=== PATIENT | male | born 1980 | race Caucasian/White ===

== ENCOUNTER 2022-12-29 14:39 | Inpatient (IN) | payer OTHER, SELFPAY ==
[2022-12-29] VITALS (10 sets, daily range): BP systolic 142–200; BP diastolic 90–140; PULSE 97–117; RESP 14–18; TEMP 36.3–36.6; O2SAT 96–99; BMI 31.1
--- NOTE | ~2022-12-29 | CT_ITS ---
EXAMINATION: CT ABDOMEN AND PELVIS WITH CONTRAST CLINICAL INFORMATION: Right upper quadrant and epigastric pain; nausea. COMPARISON: None available. TECHNIQUE: Multidetector volumetric images were obtained from the superior aspect of the liver through the pubic symphysis following administration 85 mL of Omnipaque 350 intravenous contrast. Sagittal and coronal reformatted images were obtained on the technologist's workstation. Oral contrast: No This CT examination was performed using dose optimization techniques as appropriate, variously including the following: *Automated exposure control *Adjustment of mA and/or kV according to patient size (this includes techniques or standardized protocols for targeted exams where dose is matched to indication/reason for exam; i.e. extremities or head) *Use of iterative reconstruction technique DLP: 586 mGy-cm FINDINGS: LUNG BASES: The visualized lung bases are unremarkable. LIVER, GALLBLADDER, AND BILIARY TREE: The liver is normal in size, shape and generally diminished in attenuation. No focal hepatic lesion or biliary ductal dilatation is present. The gallbladder is unremarkable with no evidence of radiopaque gallstones, gallbladder wall thickening, or obvious pericholecystic inflammatory changes. PANCREAS: Unremarkable. SPLEEN: Unremarkable. ADRENAL GLANDS: Unremarkable. KIDNEYS AND URETERS: The kidneys are normal in size, shape, and attenuation. No hydronephrosis, hydroureter, or calculi seen. No perinephric stranding. BLADDER: Unremarkable. GASTROINTESTINAL TRACT: There are a few mildly dilated small bowel loops within the mid and rightward abdomen, with a maximal caliber of approximately 3.5 cm (2:69). There is mild small bowel wall thickening (2:40-69). There is minimal diverticulosis, without acute diverticulitis seen. No free intraperitoneal air is seen. The vermiform appendix appears normal. ABDOMINAL WALL: There is a tiny fat-containing umbilical hernia. LYMPH NODES: Normal. VASCULAR: There is minimal aortoiliac atherosclerotic calcification. No abdominal aortic aneurysm or dissection is seen. PELVIC VISCERA: The prostate and seminal vesicles are unremarkable. OSSEOUS STRUCTURES: Unremarkable. FREE FLUID: There is a small amount of nonspecific free fluid in the dependent pelvis. CT/CT abdomen pelvis w IV con IMPRESSION: 1. There is mild small bowel wall thickening and dilatation, suggesting a mild adynamic ileus and/or gastroenteritis. There is minimal diverticulosis, without obvious diverticulitis. No abscess or obstruction is noted. There is no free intraperitoneal air seen. The vermiform appendix appears normal. 2. There is a small amount of nonspecific free fluid in the dependent pelvis. 3. There is hepatic steatosis. Fleischner guidelines were followed.
--- NOTE | ~2022-12-29 | US_ITS ---
EXAMINATION: US ABDOMEN LIMITED CLINICAL INFORMATION: Right upper quadrant pain tenderness nausea. COMPARISON: CT abdomen from 12/29/2022 TECHNIQUE: Real-time imaging of the right upper quadrant abdominal viscera. FINDINGS: PANCREAS: Normal. LIVER: Increased hepatic echogenicity suggesting hepatic steatosis. The liver is normal in size. The liver contour is normal. Right hepatic lobe complex cystic foci measuring 1.3 x 1.2 x 1.1 cm and 0.8 x 0.8 x 0.8 cm. There is no intrahepatic biliary duct dilatation seen. GALLBLADDER: Normal. The gallbladder is physiologically distended without evidence of stones, sludge, polyps, wall thickening or pericholecystic fluid. Sonographic Chandra sign is negative. COMMON BILE DUCT: Normal in caliber measuring 0.4 cm in diameter. RIGHT KIDNEY: Normal. No hydronephrosis. No renal calculi or focal parenchymal lesions. The kidney measures 11.9 cm in maximum dimension. FREE FLUID: None. US/US abdomen limited IMPRESSION: 1. Increased hepatic echogenicity suggesting hepatic steatosis. 2. Right hepatic lobe complex cystic foci measuring 1.3 x 1.2 x 1.1 cm and 0.8 x 0.8 x 0.8 cm.
--- NOTE | 2022-12-29 15:28 | ECG_ITS ---
Test Reason : CHEST PAIN Blood Pressure : / mmHG Vent. Rate : 105 BPM Atrial Rate : 105 BPM P-R Int : 148 ms QRS Dur : 086 ms QT Int : 320 ms P-R-T Axes : 058 066 019 degrees QTc Int : 422 ms Sinus tachycardia Nonspecific ST abnormality Inferior leads Abnormal ECG No previous ECGs available Referred By: Lauren Meza Electronically Signed By:RAMONE WARREN MD
[2022-12-29 15:42] LABS: Basophils Percent Auto 0.2 % (0-2); Eosinophils Absolute Auto 0.1 X10*3/uL (0.0-0.4); Eosinophils Percent Auto 0.5 % (0-4); Hematocrit 54.3 % (42.0-52.0); Hemoglobin 18.8 g/dl (14.0-18.0); Imm Gran Abs Auto 0.09 X10*3/uL (0.00-0.03); Imm Gran Pct Auto 0.4 % (0.0-0.4); Lymphocytes Absolute Auto 1.8 X10*3/uL (1.2-4.9); Lymphocytes Percent Auto 8.7 % (20-40); MANUAL DIFF FLAG NO; Mean Corpuscular HGB Conc 34.6 g/dl (31.0-36.0); Mean Corpuscular Hemoglobin 30.8 pg (27.0-33.0); Mean Platelet Volume 10.4 fL (9.4-12.4); Monocytes Percent Auto 4.6 % (2-11); Neutrophils Percent Auto 85.6 % (45-73); Platelet Count 296 X10*3/uL (160-400); Red Cell Distribution Width 13.1 % (11.0-16.0); White Blood Count 21.1 X10*3/uL (4.8-10.8)
--- NOTE | 2022-12-29 15:44 | ED.GENADULT ---
HPI - General Adult General Chief complaint: General Medical Stated complaint: legs cramping abd pain weak Time Seen by Provider: 12/29/22 16:27 Source: patient Mode of arrival: ambulatory Limitations: no limitations History of Present Illness HPI narrative: Patient is a 42-year-old male who presents to the emergency department for evaluation of abdominal pain and lower extremity cramping. He reports for the past 3 weeks he has been having sharp upper/mid abdominal pain and nausea without vomiting. This has been occurring intermittently. Typically pain lasts for about 10 minutes at a time before self-resolving. He states that he tried to be seen at [facility] for this but ultimately left due to weight times. He saw his primary care provider last week, reports that he had blood work done without any acute findings. He does state that over the past few weeks he was having issues with hypokalemia, they made adjustments to his medications, he had HCTZ and chlorthalidone discontinued and he was started on spironolactone in addition to potassium supplements. He does state that he had been experiencing cramping in the legs around the times of his prior hypokalemia. But he reports that today the pain in his legs is severe and he was not able to tolerated. He did not take his antihypertensives today either due to feeling unwell. He was experiencing tactile fevers and shaking chills. He denies URI symptoms, cough, chest pain, shortness of breath, dysuria, urinary frequency/urgency/hesitancy, constipation, diarrhea, numbness or tingling of the extremities. Related Data Home Medications Medication Instructions Recorded Confirmed amlodipine 10 mg-benazepril 40 mg 1 cap PO DAILY 12/29/22 12/29/22 capsule aripiprazole 20 mg tablet 20 mg PO BEDTIME PRN Hypertension 12/29/22 12/29/22 atomoxetine 40 mg capsule 40 mg PO DAILY 12/29/22 12/29/22 (Strattera) atomoxetine 80 mg capsule 80 mg PO DAILY 12/29/22 12/29/22 chlorthalidone 25 mg tablet 25 mg PO DAILY 12/29/22 clonidine HCl 0.1 mg tablet 0.1 mg PO BID PRN anxiety 12/29/22 12/29/22 dextroamphetamine-amphetamine ER 1 cap PO QAM 12/29/22 12/29/22 10 mg 24hr capsule,extend release (Adderall XR) divalproex 500 mg tablet,extended 1,000 mg PO BEDTIME 12/29/22 12/29/22 release 24 hr (Depakote ER) famotidine 20 mg tablet 20 mg PO BID 12/29/22 12/29/22 gabapentin 300 mg capsule 300 mg PO BID 12/29/22 12/29/22 melatonin 1 mg tablet 1 mg PO BEDTIME 12/29/22 12/29/22 melatonin 1 mg tablet 1 mg PO BEDTIME 12/29/22 12/29/22 spironolactone 25 mg tablet 25 mg PO DAILY 12/29/22 12/29/22 Allergies Allergy/AdvReac Type Severity Reaction Status Date / Time No Known Allergies Allergy Unverified 11/18/19 15:41 [No Known Allergies*] Review of Systems Review of Systems: Yes all other systems are reviewed and are negative [facility] Past Medical History Attestation statement: The following information was validated with the patient. Source: old records reviewed Medical History Homelessness Pre-diabetes Obstructive sleep apnea ADD (attention deficit disorder) Cannabis use disorder Bipolar disorder Hyperlipidemia Hypertension Social History Social History Smoked in Last 30 Days: No Use of substances other than those prescribed or required for medical reasons: No Advance Directives: No Physical Exam ED Vital Signs: Vital Signs - 24 hr 12/29/22 15:18 12/29/22 16:52 12/29/22 17:38 Temperature 97.4 F 97.7 F Pulse Rate 110 H 102 H 97 Respiratory Rate 18 14 14 Blood Pressure 189/135 H 197/140 H 184/112 H Pulse Oximetry 97 99 97 Oxygen Delivery Method Room Air Room Air 12/29/22 17:53 12/29/22 18:08 12/29/22 19:52 Temperature 97.8 F Pulse Rate 107 H 103 H 115 H Respiratory Rate 16 14 16 Blood Pressure 200/121 H 184/106 H 161/109 H Pulse Oximetry 96 96 96 Oxygen Delivery Method Room Air Room Air Room Air 12/29/22 20:32 12/29/22 21:16 12/29/22 21:23 Temperature Pulse Rate 113 H 117 H 106 H Respiratory Rate 16 16 16 Blood Pressure 166/107 H 163/110 H 179/121 H Pulse Oximetry 96 96 97 Oxygen Delivery Method Room Air Room Air Room Air 12/29/22 22:19 Temperature Pulse Rate 111 H Respiratory Rate 16 Blood Pressure 142/90 H Pulse Oximetry 97 Oxygen Delivery Method Room Air BMI result Body Mass Index 31.1 Appearance: Alert.?Oriented to person, place and time. No acute distress.?Normal affect. Eyes: Pupils equal, round and reactive to light.? ENT: Pharynx normal.?? Neck: Normal inspection.? Neck supple.?? CVS: Heart sounds normal. Normal heart rate and rhythm.? Pulses normal.?? Respiratory: No respiratory distress.? Lung sounds clear to auscultation bilaterally?? Abdomen: Soft with right upper quadrant and epigastric tenderness upon palpation. Negative Chandra sign. No rigidity. No guarding. No rebound tenderness Normoactive bowel sounds.? Skin: Skin warm and dry.? Normal skin color.? Extremities: No lower extremity edema.? Diffuse tenderness upon palpation of the lower extremities bilaterally. 2+ DP/PT pulse bilaterally. Neuro: Moves all extremities spontaneously. Sensation intact bilaterally. No focal neuro deficits. Ambulates with normal steady gait. Course Course Course Narrative: This is an RME: Additional HPI, ROS, PE not included below will be deferred to primary provider. this is a 42 yo M presenting w/; abd pain, nausea, b/l leg cramping. Doctors have been changing his BP meds Plan- labs, EKG Reevaluation(s) Reevaluation #1: Sepsis alert called. Sepsis fluid bolus ordered. Given gastrointestinal complaints, will cover with Zosyn at this time, orders placed for blood cultures and lactic acid, urinalysis pending at this time, CT of the abdomen and pelvis is pending at this time. Will trial hydralazine IV for hypertension, in addition to morphine IV for pain, Zofran for nausea. Time: 16:45 Reevaluation #2: Urinalysis is without evidence of infection, microscopic hematuria is present; trace blood and rbc's in addition to proteinurea consistent with rhabdo. CT of the abdomen and pelvis revealing a mild small bowel wall thickening and dilation, possible mild ileus and/or gastroenteritis, and hepatic steatosis. Plan to obtain abdominal ultrasound to fully exclude cholecystitis/cholelithiasis. This case with ED attending Dr. Roy, no further recommendations for care management, repeat CBC, BMP, CK after IV fluids for re-evaluation. Time: 18:23 Reevaluation #3: Right upper quadrant abdominal ultrasound with hepatic steatosis and complex cyst within the right hepatic lobe, no evidence of cholecystitis. At this time no evidence of infection. Suspect that leukocytosis is reactive in nature as opposed to infectious. Remains hypertensive and tachycardic, will trial additional management with metoprolol IV, fluid boluses near complete at this time, pending repeat labs. Pain has resolved at this time after morphine. Time: 20:49 Additional Reevaluation(s): 22:05 - no improvement in leukocytosis or CPK upon re-evaluation labs. Spoke with hospitalist Dr. Loyola, who accepts patient for admission to medicine service; rhabdomyolysis and hypertensive urgency Medications Administered Generic Name Dose Route Start Last Admin Trade Name Freq PRN Reason Stop Dose Admin Sodium Chloride 1,000 mls @ 125 mls/hr 12/29/22 22:30 12/29/22 22:37 Ns IVCONT 125 mls/hr .Q8H GEOVANNA Administration Sodium Chloride 3 ml 12/30/22 00:00 12/30/22 00:12 0.9 % Sodium Chloride Flush 3 Ml Syringe IVFLUSH 3 ml QSHIFT GEOVANNA Administration Discontinued Medications Generic Name Dose Route Start Last Admin Trade Name Freq PRN Reason Stop Dose Admin Amlodipine Besylate 10 mg 12/29/22 17:19 12/29/22 17:59 Amlodipine Besylate 10 Mg Tablet PO 12/29/22 17:20 10 mg ONCE ONE Administration Protocol Hydralazine HCl 10 mg 12/29/22 17:16 12/29/22 17:20 Hydralazine Hcl 20 Mg/Ml Vial IVPUSH 12/29/22 17:17 10 mg ONCE ONE Administration Protocol Hydralazine HCl 10 mg 12/29/22 18:04 12/29/22 18:05 Hydralazine Hcl 20 Mg/Ml Vial IVPUSH 12/29/22 18:05 10 mg ONCE ONE Administration Protocol Sodium Chloride 2,865 mls @ 2,865 mls/hr 12/29/22 16:34 12/29/22 18:34 Ns 30 ml/kg infuse over 1 hr (2865 ml) 12/29/22 17:33 Infused IV Infusion .Q1H STA Piperacillin Sod/Tazobactam 50 mls @ 100 mls/hr 12/29/22 16:41 12/29/22 18:03 Sod 3.375 gm/ Sodium Chloride IV 12/29/22 17:10 Infused ONCE ONE Infusion Iohexol 100 ml 12/29/22 17:22 12/29/22 17:23 Iohexol 350 Mg/Ml 100 Ml Infus..Btl IV 12/29/22 17:23 85 ml ONCE ONE Administration Metoprolol Tartrate 5 mg 12/29/22 20:47 12/29/22 21:16 Metoprolol Tartrate 5 Mg/5 Ml Vial IVPUSH 12/29/22 20:48 5 mg ONCE ONE Administration Morphine Sulfate 4 mg 12/29/22 18:22 12/29/22 18:41 Morphine Sulfate 4 Mg/Ml Cartridge IVPUSH 12/29/22 18:23 4 mg ONCE ONE Administration Protocol Ondansetron HCl 4 mg 12/29/22 18:22 12/29/22 18:41 Ondansetron Hcl 4 Mg/2 Ml Vial IVPUSH 12/29/22 18:23 4 mg ONCE ONE Administration Medical Decision Making Medical Decision Making [facility] Narrative: Patient is a 42-year-old male with past medical history of ADHD, hypertension, hyperlipidemia, GERD, hypokalemia presenting to emergency department for evaluation of abdominal pain and muscle cramping as per HPI. I assumed care of patient at 16:15. I reviewed labs upper obtained prior to my care, is a notable leukocytosis of 21.1 with left shift. overall unremarkable CMP, no hypokalemia, LFTs are normal, lipase is within normal limits, he does however have right upper quadrant/epigastric pain and tenderness upon palpation in addition to nausea, concern for potential cholelithiasis/cholecystitis, pending CT of the abdomen and pelvis at this time. Renal function is normal he is noted to have elevated CK at 1260 for which explains the cramping of the bilateral lower extremities. Upon reviewing potential etiologies denies any recent trauma, nontraumatic exertional causes such as exercise, denies alcohol consumption, illicit drug usage aside from marijuana, he is however prescribed atorvastatin 20 mg daily, in addition to amphetamine; Adderall XR 15 mg daily, denies overuse. He does state he has been having ongoing hypokalemia recently, had transition of antihypertensive, with initiation of spironolactone over the past week has been taking potassium supplements. Potassium today is normal at 4.2, with normal Mag. Differential Diagnosis Differential Diagnoses: The differential diagnosis associated with the presentation includes Admission/Observation Consideration of admission/observation: Escalation of care including admission/observation considered (See course narrative for further details) Lab Data MDM Lab Attestation statement: I reviewed the patient's lab results. (See narrative above for further details) 12/29/22 21:25 12/29/22 21:25 Labs: Lab Results 12/29/22 12/29/22 12/29/22 Range/Units 15:30 17:02 21:25 WBC 21.1 H 20.0 H (4.8-10.8) X10*3/uL RBC 6.10 H 5.88 H (4.60-5.80) X10*6/uL Hgb 18.8 H 18.1 H (14.0-18.0) g/dl Hct 54.3 H 51.7 (42.0-52.0) % MCV 89.0 87.9 (80.0-98.0) fL MCH 30.8 30.8 (27.0-33.0) pg MCHC 34.6 35.0 (31.0-36.0) g/dl RDW 13.1 13.2 (11.0-16.0) % Plt Count 296 282 (160-400) X10*3/uL MPV 10.4 10.5 (9.4-12.4) fL Immature Gran % (Auto) 0.4 0.4 (0.0-0.4) % Neut % (Auto) 85.6 H 84.4 H (45-73) % Lymph % (Auto) 8.7 L 9.6 L (20-40) % Lane % (Auto) 4.6 5.2 (2-11) % Eos % (Auto) 0.5 0.2 (0-4) % Baso % (Auto) 0.2 0.2 (0-2) % Lymph # (Auto) 1.8 1.9 (1.2-4.9) X10*3/uL Lane # (Auto) 1.0 1.1 (0.1-1.2) X10*3/uL Eos # (Auto) 0.1 0.1 (0.0-0.4) X10*3/uL Baso # (Auto) 0.0 0.0 (0.0-0.2) X10*3/uL Abs Immat Gran (auto) 0.09 H 0.08 H (0.00-0.03) X10*3/uL Absolute Neuts (auto) 18.0 H 16.9 H (2.0-8.3) x10*3/uL Absolute Nucleated RBC 0.000 0.000 (0.0-0.012) X10*3/uL Nucleated RBC % (auto) 0.0 0.0 (0.0-0.2) /100WBC ESR Cancelled Sodium 138 139 (135-145) mmol/L Potassium 4.2 3.7 (3.3-5.1) mmol/L Chloride 106 110 H (96-108) mmol/L Carbon Dioxide 20 L 18 L (22-29) mmol/L Anion Gap 16 15 (12-20) BUN 14 10 (9-16) mg/dL Creatinine 0.96 0.84 (0.5-1.4) mg/dL Estim Creat Clear Calc 114.3 130.6 Estimated GFR > 60 > 60 Random Glucose 110 113 (60-115) mg/dL Lactic Acid 1.3 (0.5-2.0) mmol/L Calcium 10.0 8.9 D (8.4-10.2) mg/dL Magnesium 2.6 (1.6-2.6) mg/dL Total Bilirubin 0.6 (0.0-1.0) mg/dL AST 37 (5-37) U/L ALT 36 (0-40) U/L Alkaline Phosphatase 68 (39-117) U/L Total Creatine Kinase 1264 H 1265 H (38-174) U/L Troponin I High Sens < 2.7 (<3.5-35.0) ng/L C-Reactive Protein 0.31 (< or = 0.50) mg/dL Total Protein 8.4 H (6.5-8.0) g/dL Albumin 4.8 (3.5-5.0) g/dL Lipase 19 (8-78) U/L Urine Color Yellow Urine Appearance Cloudy Urine pH 6.5 (5.0-9.0) Ur Specific [place] 1.020 (1.005-1.025) Urine Protein 30 (1+) H (Neg-Trace) mg/dL Urine Glucose (UA) Negative (Negative) mg/dL Urine Ketones 80 (Negative) mg/dL Urine Blood Trace H (Negative) Urine Nitrite Negative (Negative) Ur Leukocyte Esterase Negative (Negative) Urine RBC 6-10 H (0-2) /HPF Urine WBC 0-5 (0-5) /HPF Ur Squamous Epith Cells 0-2 (0-2) /HPF Urine Bacteria None Seen (None Seen) Hyaline Casts 0-2 (0-2) /LPF Independent Interpretation I performed an independent interpretation of an: EKG and CT Scan Interpretation: Rate:105 Rhythm:? Sinus tachycardia [place]:? Normal Normal P waves.? Normal CATY.?? Normal QRS complex.?? ST T wave :??No ST elevation, no ST depression, no T-wave inversion qTC: 422 prior studies:? None prior available for review The study has been interpreted contemporaneously by me. Radiology Impression Discussion of test interpretation with radiology: I have reviewed the radiologist's reading. Radiologist Impression: CT/CT abdomen pelvis w IV con IMPRESSION: 1. There is mild small bowel wall thickening and dilatation, suggesting a mild adynamic ileus and/or gastroenteritis. There is minimal diverticulosis, without obvious diverticulitis. No abscess or obstruction is noted. There is no free intraperitoneal air seen. The vermiform appendix appears normal. 2. There is a small amount of nonspecific free fluid in the dependent pelvis. 3. There is hepatic steatosis. Fleischner guidelines were followed. US/US abdomen limited IMPRESSION: 1. Increased hepatic echogenicity suggesting hepatic steatosis. 2. Right hepatic lobe complex cystic foci measuring 1.3 x 1.2 x 1.1 cm and 0.8 x 0.8 x 0.8 cm. Critical Care Time Critical Care Time Critical Care Time: Yes Total Critical Care Time: 40 Attestation: I personally attest to this critical care time spent taking care of the patient exclusive of all other billable procedures was approximately 40 minutes including initial evaluation of patient, ordering tests, x-ray interpretation, EKG interpretation, medical consultation, documentation, re-evaluation. Discharge Plan Discharge Clinical Impression: Hypertensive urgency, Rhabdomyolysis Patient Disposition: Admitted As Inpatient
[2022-12-29 15:58] LABS: Alanine Aminotransferase 36 U/L (0-40); Albumin Level 4.8 g/dL (3.5-5.0); Alkaline Phosphatase 68 U/L (39-117); Anion Gap 16 (12-20); Aspartate Amino Transferase 37 U/L (5-37); Bilirubin Total 0.6 mg/dL (0.0-1.0); Blood Urea Nitrogen 14 mg/dL (9-16); Carbon Dioxide 20 mmol/L (22-29); Chloride 106 mmol/L (96-108); Creatinine Clr Calc Pharmacy 114.3; Estimated Glomerular Filt Rate > 60; Glucose Random 110 mg/dL (60-115); Lipase 19 U/L (8-78); Magnesium 2.6 mg/dL (1.6-2.6); Potassium 4.2 mmol/L (3.3-5.1); Sodium 138 mmol/L (135-145); Total Protein 8.4 g/dL (6.5-8.0)
[2022-12-29 16:08] LABS: Troponin-I High Sensitivity < 2.7 ng/L (<3.5-35.0)
[2022-12-29 17:10] LABS: Appearance Urine Cloudy; Color Urine Yellow; Glucose Urine UA Negative (Negative); Leukocyte Esterase Urine Negative (Negative); Nitrite Urine Negative (Negative); PH 6.5 (5.0-9.0); UMIC TRIGGER UACC YES; Urine Blood Trace (Negative); Urine Ketones 80 mg/dL (Negative); Urine Protein 30 (1+) mg/dL (Neg-Trace)
--- NOTE | 2022-12-29 17:14 | PC.NURSE ---
pt taken to CT scan at this time, first set of blood cultures obtained and sent
[2022-12-29 17:15] LABS: Bacteria Urine None Seen (None Seen); Hyaline Casts Urine 0-2 /LPF (0-2); Squamous Epithelial Cell Urine 0-2 /HPF (0-2); WBC Urine 0-5 /HPF (0-5)
[2022-12-29] MEDS: hydrALAZINE HCl 20 MG/ML VIAL 10 MG IVPUSH ×2 (17:20→18:05)
[2022-12-29] MEDS: iohexoL 350 MG/ML 100 ML INFUS..BTL IV (17:23)
[2022-12-29 17:26] LABS: Lactic Acid 1.3 mmol/L (0.5-2.0)
[2022-12-29] MEDS: Piperacillin Sodium/Tazobactam 3.375 GM in 0.9 % Sodium Chloride 50 ML IV (17:31)
--- NOTE | 2022-12-29 17:42 | PC.NURSE ---
second set of blood cultures obtained, medicated per the MAR/antibiotics infusing at this time.
[2022-12-29] MEDS: amLODIPine Besylate 10 MG TABLET PO (17:59)
[2022-12-29 18:36] LABS: C Reactive Protein 0.31 mg/dL (< or = 0.50)
[2022-12-29] MEDS: Morphine Sulfate 4 MG/ML CARTRIDGE IVPUSH (18:41)
[2022-12-29] MEDS: ondansetron HCL 4 MG/2 ML VIAL IVPUSH (18:41)
--- NOTE | 2022-12-29 19:12 | PC.NURSE ---
prior to zofran administration, patient had large episode of vomiting approx 300mL. states he is feeling better after zofran, ultrasound at bedside.
--- NOTE | 2022-12-29 19:17 | PC.NURSE ---
bedside ultrasound in progress
--- NOTE | 2022-12-29 20:53 | PC.NURSE ---
pt assessed. reported no pain at this time, pt hypertensive, [employer] aware
[2022-12-29] MEDS: Metoprolol Tartrate 5 MG/5 ML VIAL IVPUSH (21:16)
[2022-12-29 21:33] LABS: MANUAL DIFF FLAG NO
[2022-12-29 21:38] LABS: Basophils Percent Auto 0.2 % (0-2); Eosinophils Absolute Auto 0.1 X10*3/uL (0.0-0.4); Eosinophils Percent Auto 0.2 % (0-4); Hematocrit 51.7 % (42.0-52.0); Hemoglobin 18.1 g/dl (14.0-18.0); Imm Gran Abs Auto 0.08 X10*3/uL (0.00-0.03); Imm Gran Pct Auto 0.4 % (0.0-0.4); Lymphocytes Absolute Auto 1.9 X10*3/uL (1.2-4.9); Lymphocytes Percent Auto 9.6 % (20-40); Mean Corpuscular Hemoglobin 30.8 pg (27.0-33.0); Mean Corpuscular Volume 87.9 fL (80.0-98.0); Mean Platelet Volume 10.5 fL (9.4-12.4); Monocytes Absolute Auto 1.1 X10*3/uL (0.1-1.2); Monocytes Percent Auto 5.2 % (2-11); Neutrophils Absolute Auto 16.9 x10*3/uL (2.0-8.3); Neutrophils Percent Auto 84.4 % (45-73); Platelet Count 282 X10*3/uL (160-400); Red Blood Count 5.88 X10*6/uL (4.60-5.80); Red Cell Distribution Width 13.2 % (11.0-16.0)
--- NOTE | 2022-12-29 21:41 | PC.NURSE ---
pt assessed, labs obtained, medicated with 5 mg metoprolol ivp, will cont to monitor
[2022-12-29 21:49] LABS: Anion Gap 15 (12-20); Blood Urea Nitrogen 10 mg/dL (9-16); Calcium 8.9 mg/dL (8.4-10.2); Carbon Dioxide 18 mmol/L (22-29); Chloride 110 mmol/L (96-108); Creatinine Clr Calc Pharmacy 130.6; Estimated Glomerular Filt Rate > 60; Glucose Random 113 mg/dL (60-115); Potassium 3.7 mmol/L (3.3-5.1); Sodium 139 mmol/L (135-145)
--- NOTE | 2022-12-29 22:25 | PM.IMHP ---
History of Present Illness Date of Service: 12/29/22 <GAYLE Lieberman - Last Filed: 12/29/22 22:42> Attending physician on admission: Kevin Loyola <GAYLE Lieberman - Last Filed: 12/29/22 22:42> Chief Complaint: epigastric pain, ble cramping <GAYLE Lieberman - Last Filed: 12/29/22 22:42> 42-year-old male with history of hypertension, hyperlipidemia, bipolar disorder, ADD, pre diabetes, CHAO noncompliant with CPAP who is a regular marijuana smoker presents to the ED earlier today for evaluation of epigastric pain and nausea that has been intermittent for the last 3 weeks. He has seen his PCP for this who prescribed him famotidine without any relief. He denies any vomiting, diarrhea, urinary symptoms. No fevers or chills. He is unable to identify any relieving or exacerbating factors. He also tells me that for about 3 weeks he has had cramping in the bilateral lower extremities that is intermittent. Describes a soreness that is especially prominent in the thighs. He does use atorvastatin for his cholesterol as well as smoking marijuana but denies any other supplement use or illicit drug use. He does not exercise and does endorse that he does not drink enough water. He also tells me that his PCP has been adjusting his blood pressure medications due to hypokalemia. He is no longer on any thiazide sinus instead taking amlodipine 10 mg spironolactone 25 mg with improvement in his potassium levels. He did miss his blood pressure medications this morning but did take his Adderall. While in the ED, patient has been persistently hypertensive to 200/121 with tachycardia to 115. He is afebrile without any hypoxia. Has been given 10 mg IV hydralazine x2, and 5 mg IV Lopressor. Has also been given 2.8 L IV NS and 3.375 g Zosyn as he did have leukocytosis of 20.0. Renal function is normal, electrolyte levels are normal except for CO2 18. Total CK 1265, unimproved following IV fluids at 1264. Urinalysis unremarkable except for trace blood and 1+ protein. Urine is yellow and cloudy in appearance. CT abdomen/pelvis shows mild small bowel wall thickening and dilation suggestive of mild adynamic ileus versus gastroenteritis. Abdominal ultrasound shows increased hepatic echogenicity suggestive of fatty steatosis and right hepatic lobe complex cystic foci. No acute abnormality. <GAYLE Lieberman - Last Filed: 12/29/22 22:42> Review of Systems Review of Systems: General: No fevers, malaise, unintentional weight loss HEENT: No blurred vision, diplopia. No sore throat, nasal congestion, rhinorrhea, sinus pain, ear pain Cardiovascular: No chest pain, palpitations, or leg edema Respiratory: No shortness of breath, wheezing, cough GI: +epigastric pain, +nausea, +bloating. No vomiting, diarrhea, constipation, melena, hematochezia : No dysuria, hematuria, increased urinary frequency, decreased urinary output MSK: +myaglia. No back pain Neuro: No headaches, weakness, paresthesias Skin: No rashes or lesions <GAYLE Lieberman - Last Filed: 12/29/22 22:42> [facility] Medical History: Medical History Homelessness Pre-diabetes Obstructive sleep apnea ADD (attention deficit disorder) Cannabis use disorder Bipolar disorder Hyperlipidemia Hypertension <GAYLE Lieberman - Last Filed: 12/29/22 22:42> Social History: Social History Smoked in Last 30 Days: No Use of substances other than those prescribed or required for medical reasons: No Advance Directives: No <GAYLE Lieberman - Last Filed: 12/29/22 22:42> Meds Allergies/Adverse reactions: Allergies Allergy/AdvReac Type Severity Reaction Status Date / Time No Known Allergies Allergy Unverified 11/18/19 15:41 [No Known Allergies*] <GAYLE Lieberman - Last Filed: 12/29/22 22:42> Active Medications: Current Medications Acetaminophen (Acetaminophen 325 Mg Tablet) 650 mg PO Q6H PRN PRN Reason: Pain, Mild (Pain Scale 1-3) Docusate Sodium (Docusate Sodium 100 Mg Capsule) 100 mg PO DAILY PRN PRN Reason: Constipation Sodium Chloride (Ns) 1,000 mls @ 125 mls/hr IVCONT .Q8H GEOVANNA Omeprazole (Omeprazole 20 Mg Capsule.) 20 mg PO DAILY@0630 [facility] Ondansetron HCl (Ondansetron Hcl 4 Mg/2 Ml Vial) 4 mg IVPUSH Q8H PRN PRN Reason: Nausea and Vomiting Sodium Chloride (0.9 % Sodium Chloride Flush 3 Ml Syringe) 3 ml IVFLUSH QSHIFT [facility] <GAYLE Lieberman - Last Filed: 12/29/22 22:42> Home medications: Home Medications Medication Instructions Recorded Confirmed Last Taken Type amlodipine 10 mg-benazepril 40 mg 1 cap PO DAILY 12/29/22 12/29/22 12/28/22 08:00 History capsule aripiprazole 20 mg tablet 20 mg PO BEDTIME PRN Hypertension 12/29/22 12/29/22 12/28/22 08:00 History atomoxetine 40 mg capsule 40 mg PO DAILY 12/29/22 12/29/22 12/28/22 08:00 History (Strattera) atomoxetine 80 mg capsule 80 mg PO DAILY 12/29/22 12/29/22 12/28/22 08:00 History chlorthalidone 25 mg tablet 25 mg PO DAILY 12/29/22 Unknown History clonidine HCl 0.1 mg tablet 0.1 mg PO BID PRN anxiety 12/29/22 12/29/22 12/28/22 08:00 History dextroamphetamine-amphetamine ER 1 cap PO QAM 12/29/22 12/29/22 12/28/22 08:00 History 10 mg 24hr capsule,extend release (Adderall XR) divalproex 500 mg tablet,extended 1,000 mg PO BEDTIME 12/29/22 12/29/22 12/28/22 08:00 History release 24 hr (Depakote ER) famotidine 20 mg tablet 20 mg PO BID 12/29/22 12/29/22 12/28/22 08:00 History gabapentin 300 mg capsule 300 mg PO BID 12/29/22 12/29/22 12/28/22 08:00 History melatonin 1 mg tablet 1 mg PO BEDTIME 12/29/22 12/29/22 12/20/22 22:00 History melatonin 1 mg tablet 1 mg PO BEDTIME 12/29/22 12/29/22 12/27/22 08:00 History spironolactone 25 mg tablet 25 mg PO DAILY 12/29/22 12/29/22 12/28/22 08:00 History <GAYLE Lieberman - Last Filed: 12/29/22 22:42> Physical Exam Vital Signs and Narrative: Vital Signs: Last Vital Signs Temp 97.8 F 12/29/22 17:53 Pulse 111 H 12/29/22 22:19 Resp 16 12/29/22 22:19 BP 142/90 H 12/29/22 22:19 Pulse Ox 97 12/29/22 22:19 O2 Del Method Room Air 12/29/22 22:19 BMI result Body Mass Index 31.1 <GAYLE Lieberman - Last Filed: 12/29/22 22:42> Results Labs CBC and Chem 7: 12/29/22 21:25 12/29/22 21:25 <GAYLE Lieberman - Last Filed: 12/29/22 22:42> Labs: Laboratory Results - last 24 hr 12/29/22 12/29/22 12/29/22 15:30 17:02 21:25 MCV 89.0 87.9 MCH 30.8 30.8 MCHC 34.6 35.0 RDW 13.1 13.2 Plt Count 296 282 MPV 10.4 10.5 Immature Gran % (Auto) 0.4 0.4 Neut % (Auto) 85.6 H 84.4 H Lymph % (Auto) 8.7 L 9.6 L [place] % (Auto) 4.6 5.2 Eos % (Auto) 0.5 0.2 Baso % (Auto) 0.2 0.2 Lymph # (Auto) 1.8 1.9 [place] # (Auto) 1.0 1.1 Eos # (Auto) 0.1 0.1 Baso # (Auto) 0.0 0.0 Abs Immat Gran (auto) 0.09 H 0.08 H Absolute Neuts (auto) 18.0 H 16.9 H Absolute Nucleated RBC 0.000 0.000 Nucleated RBC % (auto) 0.0 0.0 ESR Cancelled Anion Gap 16 15 Estim Creat Clear Calc 114.3 130.6 Estimated GFR > 60 > 60 Random Glucose 110 113 Lactic Acid 1.3 Calcium 10.0 8.9 D Magnesium 2.6 Total Bilirubin 0.6 AST 37 ALT 36 Alkaline Phosphatase 68 Total Creatine Kinase 1264 H 1265 H C-Reactive Protein 0.31 Total Protein 8.4 H Albumin 4.8 Lipase 19 Urine Color Yellow Urine Appearance Cloudy Urine pH 6.5 Ur Specific [place] 1.020 Urine Protein 30 (1+) H Urine Glucose (UA) Negative Urine Ketones 80 Urine Blood Trace H Urine Nitrite Negative Ur Leukocyte Esterase Negative Urine RBC 6-10 H Urine WBC 0-5 Ur Squamous Epith Cells 0-2 Urine Bacteria None Seen Hyaline Casts 0-2 <GAYLE Lieberman - Last Filed: 12/29/22 22:42> Imaging Radiologist's Impressions: Impressions Abdomen/Pelvis CT 12/29/22 17:22 IMPRESSION: 1. There is mild small bowel wall thickening and dilatation, suggesting a mild adynamic ileus and/or gastroenteritis. There is minimal diverticulosis, without obvious diverticulitis. No abscess or obstruction is noted. There is no free intraperitoneal air seen. The vermiform appendix appears normal. 2. There is a small amount of nonspecific free fluid in the dependent pelvis. 3. There is hepatic steatosis. Fleischner guidelines were followed. Abdomen Ultrasound 12/29/22 19:26 IMPRESSION: 1. Increased hepatic echogenicity suggesting hepatic steatosis. 2. Right hepatic lobe complex cystic foci measuring 1.3 x 1.2 x 1.1 cm and 0.8 x 0.8 x 0.8 cm. <GAYLE Lieberman - Last Filed: 12/29/22 22:42> Assessment and Plan (1) Statin-induced rhabdomyolysis: Status: Acute <GAYLE Lieberman - Last Filed: 12/29/22 22:42> (2) Hypertensive urgency: Status: Acute <GAYLE Lieberman - Last Filed: 12/29/22 22:42> 42-year-old male with history of hypertension, hyperlipidemia, bipolar disorder, ADD, pre diabetes, CHAO noncompliant with CPAP who is a regular marijuana smoker to be observed for statin induced rhabdomyolysis. #Statin-induced rhabdomyolysis -CPK 1265, minimal improvement with IVF with associated BLE cramping -no esthela, denies illicit substance use -Aggressive IVF, encourage increased po hydration -Hold statin -pain management prn -follow cpk #Hypertensive urgency -BP 200/121, improved to 142/90 on admission following IV antihypertensives -patient did not take his medications this morning -hold Adderall as this is likely contributory -continue amlodipine 10 mg, spironolactone 25 mg daily -monitor blood pressure -monitor on telemetry # acute leukocytosis -likely related to statin induced rhabdomyolysis, not sepsis -follow CBC # sinus tachycardia -acutely related to Adderall XR, not sepsis # hyperlipidemia -hold statin as above # mood disorder/ADD -hold Adderall -continue mood stabilizers DVT prophylaxis- SCPs/early ambulation Full code Patient requires inpatient stay at least 2 midnights for management of statin induced rhabdomyolysis requiring aggressive IV fluid resuscitation and close monitoring of renal function and CPK as well as close monitoring of blood pressures due to hypertensive urgency requiring IV antihypertensive agents to safely lower BP <GAYLE Lieberman - Last Filed: 12/29/22 22:42> 42-year-old male with history of hypertension, hyperlipidemia, bipolar disorder, ADD, pre diabetes, CHAO noncompliant with CPAP who is a regular marijuana smoker to be observed for statin induced rhabdomyolysis. # ?Statin-induced rhabdomyolysis -CPK 1265, minimal improvement with IVF with associated BLE cramping -no esthela, denies illicit substance use -Aggressive IVF, encourage increased po hydration -Hold statin -pain management prn -follow cpk #Hypertensive urgency -BP 200/121, improved to 142/90 on admission following IV antihypertensives -patient did not take his medications this morning -hold Adderall as this is likely contributory -continue amlodipine 10 mg, spironolactone 25 mg daily -monitor blood pressure -monitor on telemetry # acute leukocytosis -likely related to statin induced rhabdomyolysis, not sepsis -follow CBC # sinus tachycardia -acutely related to Adderall XR, not sepsis # hyperlipidemia -hold statin as above # mood disorder/ADD -hold Adderall -continue mood stabilizers DVT prophylaxis- SCPs/early ambulation Full code Patient requires inpatient stay at least 2 midnights for management of statin induced rhabdomyolysis requiring aggressive IV fluid resuscitation and close monitoring of renal function and CPK as well as close monitoring of blood pressures due to hypertensive urgency requiring IV antihypertensive agents to safely lower BP <Kevin Loyola MD - Last Filed: 12/30/22 02:21> Time Spent With Patient Time: Total time managing care of this patient today ____ minutes. <GAYLE Lieberman - Last Filed: 12/29/22 22:42> Quality Stroke Does the patient have a stroke diagnosis?: No <GAYLE Lieberman - Last Filed: 12/29/22 22:42> VTE Prior VTE?: No <GAYLE Lieberman - Last Filed: 12/29/22 22:42> VTE Risk Level:: Medical - moderate - high <GAYLE Lieberman - Last Filed: 12/29/22 22:42> VTE Device Contraindication: Treatment Not Indicated <GAYLE Lieberman - Last Filed: 12/29/22 22:42> VTE Drug Contraindication: N/A - Med Ordered <GAYLE Lieberman - Last Filed: 12/29/22 22:42>
[2022-12-29] MEDS: 0.9 % Sodium Chloride 1,000 ML 125 ML IVCONT (22:37)
--- NOTE | 2022-12-29 22:40 | PC.NURSE ---
pt assessed, NS infusing, pt denies any pain
[2022-12-30] VITALS: BP 169/105; PULSE 96; RESP 15; TEMP 36.8; O2SAT 99
[2022-12-30] MEDS: 0.9 % Sodium Chloride Flush 3 ML SYRINGE IVFLUSH (00:12)
--- OUTSIDE RECORDS SUMMARY | 2022-12-30 01:01 | XMS_ITS | Patient Health Record ---
Author Name Unknown Organization [facility] Address [address], [place] [id number] Care Team Providers Care Stranner Name Role Phone Ezekiel NIA Caldwell Primary Care Provider Ghassan Olmstead Unavailable [phone] REASON FOR REFERRAL Reason Client is in need of Psyc. appointment Called and left client a message. No reply Referral Organization [facility] Referring Provider First Name Ghassan Referring Provider Last Name Gonzalo Referring Provider Speciality Clinic or group practice Referred Organization [facility] Referred Provider Ghassan Sánchez Referred Address [facility],[address] [place] [phone], Referred Provider Specialty Clinic or [facility] practice Referral Priority Routine SOCIAL HISTORY Sex Assigned At : Social History Observation Description Sex Assigned At Unknown Encounters Encounter Location Date Provider Diagnosis [facility] [address] [id number] 06/26/2022 Ghassan Sánchez PLAN OF TREATMENT No Information Insurance Providers Payer Name Payer Address Payer Phone Subscriber Number Group Number Insured Name Patient Relationship to Insured Coverage Start Date Coverage End Date [place] Medicaid Standard [address] [place] [phone] [id number] Jovi Johnson Self - patient is the insured 3
[2022-12-30 02:43] VITALS: BMI 31.1
[2022-12-30 02:56] VITALS: BP 163/90; PULSE 95; RESP 18; TEMP 36.6; O2SAT 96
[2022-12-30] MEDS: 0.9 % Sodium Chloride 1,000 ML 125 ML IVCONT (05:49)
[2022-12-30] MEDS: Omeprazole 20 MG CAPSULE.DR PO (05:49)
[2022-12-30 07:20] LABS: MANUAL DIFF FLAG NO
[2022-12-30 07:25] LABS: Basophils Percent Auto 0.1 % (0-2); Eosinophils Absolute Auto 0.1 X10*3/uL (0.0-0.4); Eosinophils Percent Auto 0.5 % (0-4); Hematocrit 47.9 % (42.0-52.0); Imm Gran Abs Auto 0.06 X10*3/uL (0.00-0.03); Imm Gran Pct Auto 0.4 % (0.0-0.4); Lymphocytes Absolute Auto 2.7 X10*3/uL (1.2-4.9); Lymphocytes Percent Auto 17.3 % (20-40); Mean Corpuscular HGB Conc 35.5 g/dl (31.0-36.0); Mean Corpuscular Volume 87.4 fL (80.0-98.0); Mean Platelet Volume 10.8 fL (9.4-12.4); Monocytes Absolute Auto 1.1 X10*3/uL (0.1-1.2); Monocytes Percent Auto 7.2 % (2-11); Neutrophils Absolute Auto 11.7 x10*3/uL (2.0-8.3); Neutrophils Percent Auto 74.5 % (45-73); Platelet Count 260 X10*3/uL (160-400); Red Blood Count 5.48 X10*6/uL (4.60-5.80); Red Cell Distribution Width 13.2 % (11.0-16.0); White Blood Count 15.7 X10*3/uL (4.8-10.8)
[2022-12-30 07:48] LABS: Anion Gap 15 (12-20); Blood Urea Nitrogen 8 mg/dL (9-16); Calcium 9.2 mg/dL (8.4-10.2); Carbon Dioxide 21 mmol/L (22-29); Chloride 105 mmol/L (96-108); Creatinine Clr Calc Pharmacy 135.4; Estimated Glomerular Filt Rate > 60; Glucose Random 103 mg/dL (60-115); Potassium 3.3 mmol/L (3.3-5.1); Sodium 138 mmol/L (135-145)
[2022-12-30 08:00] VITALS: BP 188/116; PULSE 104; RESP 20; TEMP 36.9; O2SAT 98
--- NOTE | 2022-12-30 08:18 | PHA.MEDREC ---
Pharmacy Consult ? Medication Reconciliation Pharmacy has completed the medication reconciliation. Spoke to patient and verified medication list.
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
[2022-12-30] MEDS: cloNIDine HCL 0.1 MG TABLET PO (09:54)
[2022-12-30] MEDS: Spironolactone 25 MG TABLET PO (09:54)
[2022-12-30] MEDS: lisinopriL 40 MG TABLET PO (09:54)
[2022-12-30] MEDS: amLODIPine Besylate 10 MG TABLET PO (09:54)
[2022-12-30] MEDS: Gabapentin 300 MG CAPSULE PO (09:54)
[2022-12-30] MEDS: Famotidine 20 MG TABLET PO (09:55)
--- NOTE | 2022-12-30 09:57 | P.DS_ITS ---
DS: Providers Provider Date of Service: 12/30/22 Date of admission: 12/29/22 22:38 Primary care physician: Unknown Physician DS: Diagnosis Discharge Diagnosis (1) Statin-induced rhabdomyolysis: Status: Acute (2) Hypertensive urgency: Status: Acute DS: Summary Hospital Course Hospital Course: from initial hpi: 42-year-old male with history of hypertension, hyperlipidemia, bipolar disorder, ADD, pre diabetes, CHAO noncompliant with CPAP who is a regular marijuana smoker presents to the ED earlier today for evaluation of epigastric pain and nausea that has been intermittent for the last 3 weeks. He has seen his PCP for this who prescribed him famotidine without any relief. He denies any vomiting, diarrhea, urinary symptoms. No fevers or chills. He is unable to identify any relieving or exacerbating factors. He also tells me that for about 3 weeks he has had cramping in the bilateral lower extremities that is intermittent. Describes a soreness that is especially prominent in the thighs. He does use atorvastatin for his cholesterol as well as smoking marijuana but denies any other supplement use or illicit drug use. He does not exercise and does endorse that he does not drink enough water. He also tells me that his PCP has been adjusting his blood pressure medications due to hypokalemia. He is no longer on any thiazide sinus instead taking amlodipine 10 mg spironolactone 25 mg with improvement in his potassium levels. He did miss his blood pressure medications this morning but did take his Adderall. While in the ED, patient has been persistently hypertensive to 200/121 with tachycardia to 115. He is afebrile without any hypoxia. Has been given 10 mg IV hydralazine x2, and 5 mg IV Lopressor. Has also been given 2.8 L IV NS and 3.375 g Zosyn as he did have leukocytosis of 20.0. Renal function is normal, electrolyte levels are normal except for CO2 18. Total CK 1265, unimproved following IV fluids at 1264. Urinalysis unremarkable except for trace blood and 1+ protein. Urine is yellow and cloudy in appearance. CT abdomen/pelvis shows mild small bowel wall thickening and dilation suggestive of mild adynamic ileus versus gastroenteritis. Abdominal ultrasound shows increased hepatic echogenicity suggestive of fatty steatosis and right hepatic lobe complex cystic foci. No acute abnormality. hospital course: Patient was admitted for acute enteritis. This resolved with hydration and was able to tolerate solid diet. He had hypertensive urgency which improved with restarting his blood pressure meds. Complaints is urged. For ADHD and mood disorder can restart Adderall but should monitor blood pressure closely. Patient is feeling better will be discharged home. Of note incidentally noted was fatty liver with complex hepatic cyst this should be followed up as outpatie nt. Time Spent with Patient Time attestation: Total time managing care of this patient today ____ minutes. Discharge coordination time: Greater than 30 minutes Quality: Safe Use of Opioids Does Pt have an Active Cancer Diagnosis on the Problem List?: No Quality: Stroke Does the patient have a stroke diagnosis?: No Physical Exam Vital Signs: Vital Signs: Last Vital Signs Temp 98.4 F 12/30/22 08:00 Pulse 104 H 12/30/22 08:00 Resp 20 12/30/22 08:00 BP 188/116 H 12/30/22 08:00 Pulse Ox 98 12/30/22 08:00 O2 Del Method Room Air 12/30/22 08:00 BMI result Body Mass Index 31.1 General: AO X 3, no acute distress Resp: CTA bilateral, no accessory muscles used CVS: S1,S2,RRR GI: soft, non tender, non distended Neuro: motor grossly intact, alert Psych: appropriate affect, appropriate insight DS: Data Data Completed and Pending Labs on day of discharge: Laboratory Results - last 24 hr 12/29/22 12/29/22 12/29/22 15:30 17:02 21:25 WBC 21.1 H 20.0 H RBC 6.10 H 5.88 H Hgb 18.8 H 18.1 H Hct 54.3 H 51.7 MCV 89.0 87.9 MCH 30.8 30.8 MCHC 34.6 35.0 RDW 13.1 13.2 Plt Count 296 282 MPV 10.4 10.5 Immature Gran % (Auto) 0.4 0.4 Neut % (Auto) 85.6 H 84.4 H Lymph % (Auto) 8.7 L 9.6 L Daniels % (Auto) 4.6 5.2 Eos % (Auto) 0.5 0.2 Baso % (Auto) 0.2 0.2 Lymph # (Auto) 1.8 1.9 Daniels # (Auto) 1.0 1.1 Eos # (Auto) 0.1 0.1 Baso # (Auto) 0.0 0.0 Abs Immat Gran (auto) 0.09 H 0.08 H Absolute Neuts (auto) 18.0 H 16.9 H Absolute Nucleated RBC 0.000 0.000 Nucleated RBC % (auto) 0.0 0.0 ESR Cancelled Sodium 138 139 Potassium 4.2 3.7 Chloride 106 110 H Carbon Dioxide 20 L 18 L Anion Gap 16 15 BUN 14 10 Creatinine 0.96 0.84 Estim Creat Clear Calc 114.3 130.6 Estimated GFR > 60 > 60 Random Glucose 110 113 Lactic Acid 1.3 Calcium 10.0 8.9 D Magnesium 2.6 Total Bilirubin 0.6 AST 37 ALT 36 Alkaline Phosphatase 68 Total Creatine Kinase 1264 H 1265 H Troponin I High Sens < 2.7 C-Reactive Protein 0.31 Total Protein 8.4 H Albumin 4.8 Lipase 19 Urine Color Yellow Urine Appearance Cloudy Urine pH 6.5 Ur Specific [place] 1.020 Urine Protein 30 (1+) H Urine Glucose (UA) Negative Urine Ketones 80 Urine Blood Trace H Urine Nitrite Negative Ur Leukocyte Esterase Negative Urine RBC 6-10 H Urine WBC 0-5 Ur Squamous Epith Cells 0-2 Urine Bacteria None Seen Hyaline Casts 0-2 12/30/22 07:01 WBC 15.7 H RBC 5.48 Hgb 17.0 Hct 47.9 MCV 87.4 MCH 31.0 MCHC 35.5 RDW 13.2 Plt Count 260 MPV 10.8 Immature Gran % (Auto) 0.4 Neut % (Auto) 74.5 H Lymph % (Auto) 17.3 L Daniels % (Auto) 7.2 Eos % (Auto) 0.5 Baso % (Auto) 0.1 Lymph # (Auto) 2.7 Daniels # (Auto) 1.1 Eos # (Auto) 0.1 Baso # (Auto) 0.0 Abs Immat Gran (auto) 0.06 H Absolute Neuts (auto) 11.7 H Absolute Nucleated RBC 0.000 Nucleated RBC % (auto) 0.0 ESR Sodium 138 Potassium 3.3 Chloride 105 Carbon Dioxide 21 L Anion Gap 15 BUN 8 L Creatinine 0.81 Estim Creat Clear Calc 135.4 Estimated GFR > 60 Random Glucose 103 Lactic Acid Calcium 9.2 Magnesium Total Bilirubin AST ALT Alkaline Phosphatase Total Creatine Kinase 1523 H Troponin I High Sens C-Reactive Protein Total Protein Albumin Lipase Urine Color Urine Appearance Urine pH Ur Specific [place] Urine Protein Urine Glucose (UA) Urine Ketones Urine Blood Urine Nitrite Ur Leukocyte Esterase Urine RBC Urine WBC Ur Squamous Epith Cells Urine Bacteria Hyaline Casts Discharge Plan Discharge Anticipated Discharge Date/Time: 12/30/22 09:54 Patient Disposition: Home, Self-Care Discharge Diagnosis: enteritis, htn Referrals: Physician,Unknown J [Primary Care Provider] - 1 Week Discharge Medications: Continued clonidine HCl 0.1 mg tablet 0.1 mg PO BID PRN (Reason: anxiety) spironolactone 25 mg tablet 25 mg PO DAILY famotidine 20 mg tablet 20 mg PO BID divalproex [Depakote ER] 500 mg tablet extended release 24 hr 1,000 mg PO BEDTIME gabapentin 300 mg capsule 300 mg PO BID aripiprazole 20 mg tablet 20 mg PO BEDTIME melatonin 1 mg tablet 1 mg PO BEDTIME amlodipine-benazepril 10-40 mg capsule 1 cap PO DAILY dextroamphetamine-amphetamine [Adderall XR] 15 mg Capsule,Extended Release 24hr 15 mg PO QAM Discharge Orders: Discharge Order (Routine); Ordered 12/30/22 Ordered By: Guille Fan Diet: Advance to usual diet Activity on Discharge: As tolerated Stand Alone Forms: Patient Portal Discharge page Care Plan Goals: recovery Health Concerns: fatty liver, complext hepatic cyst, uncontrolled htn Plan of Treatment: oral hydration, take bp meds as prescribed, follow up with pcp for further liver work up Assessment: see above
--- NOTE | 2022-12-30 10:59 | MHC.CM.PN ---
Pt is medically cleared for D/C today, back to [facility]. [facility]
== END 2022-12-30 10:58 | disposition home or self-care (01) | DRG 351 ==
LOC: HO.ED 18:25 → HO.EDOVER 12-30 01:00 → HO.IMC 12-30 01:18
PROVIDERS: Nurse Practitioner Family; Physician Assistant; Admitting Provider Physician Assistant; Emergency Provider Internal Medicine; PCP Nurse Practitioner Family; Visit Provider Internal Medicine
DX: M62.82 Rhabdomyolysis (principal); E78.5 Hyperlipidemia, unspecified; I10 Essential (primary) hypertension; F17.210 Nicotine dependence, cigarettes, uncomplicated; F90.9 Attention-deficit hyperactivity disorder, unspecified type; G47.33 Obstructive sleep apnea (adult) (pediatric); R00.0 Tachycardia, unspecified; K52.9 Noninfective gastroenteritis and colitis, unspecified; F39 Unspecified mood [affective] disorder; T43.625A Adverse effect of amphetamines, initial encounter; T46.6X5A Adverse effect of antihyperlipidemic and antiarteriosclerotic drugs, initial encounter; I16.0 Hypertensive urgency; Z71.6 Tobacco abuse counseling; Z91.199 Patient's noncompliance with other medical treatment and regimen due to unspecified reason; Z79.899 Other long term (current) drug therapy
CPT/HCPCS: 36415; 74177; 76705; 80048; 80053; 81001; 82550; 83605; 83690; 83735; 84484; 85025; 86140; 87040; 93005; 99285; J2270; J2405; J2543; Q9967

== ENCOUNTER → 2022-12-29 22:38 | Outpatient (BNV) | payer OTHER, SELFPAY | PROVIDERS: Admitting Provider Physician Assistant; Emergency Provider Internal Medicine; Visit Provider Physician Assistant | DX: M62.82 Rhabdomyolysis (principal); T46.6X5A Adverse effect of antihyperlipidemic and antiarteriosclerotic drugs, initial encounter; I16.0 Hypertensive urgency | CPT/HCPCS: 99223; 99239 ==

== ENCOUNTER 2023-11-22 11:43 | Inpatient (IN) | payer OTHER, SELFPAY ==
[2023-11-22] VITALS (13 sets, daily range): BP systolic 146–190; BP diastolic 96–144; PULSE 84–110; RESP 13–20; TEMP 36.6–37.1; O2SAT 93–99; BMI 29.5
--- NOTE | ~2023-11-22 | CT_ITS ---
EXAMINATION: CT ANGIOGRAM HEAD CT ANGIOGRAM NECK CLINICAL INFORMATION: Syncope. Collapse. Family history of aneurysm. COMPARISON: None available. TECHNIQUE: Initial noncontrast metal riveting machine operator imaging of the head and neck was performed. Noncontrast head CT was also performed. Test bolus sequences followed by intravenous administration 70 mL of Omnipaque 350. Helical imaging was performed in the axial plane from the aortic arch to the skull vertex. Delayed postcontrast imaging of the head was also performed. The data was processed at the surgical scrub technologist's workstation for generation of MIP sequences. Angled MIPs and volume rendered reformatted images were also generated at an offline 3D workstation. Stenoses are assessed in accordance with NASCET criteria unless otherwise indicated. This CT examination was performed using dose optimization techniques as appropriate, variously including the following: *Automated exposure control. *Adjustment of mA and/or kV according to patient size (this includes techniques or standardized protocols for targeted exams where dose is matched to indication/reason for exam; i.e. extremities or head). *Use of iterative reconstruction technique. DLP: 2632 mGy-cm FINDINGS: CT Head: There is no evidence of acute intracranial hemorrhage or edematous territorial infarction. Gregg-white matter differentiation is preserved. There is no abnormal attenuation within the brain parenchyma. The ventricles are normal in morphology and size. No evidence for obstructive hydrocephalus. No abnormal mass effect or midline shift. No extra-axial fluid collections. No pathologic intra-axial enhancement or regional oligemia. No acute soft tissue or osseous abnormalities. Mucous retention cysts within the left maxillary sinus. Mild mucosal thickening of the remaining paranasal sinuses. The mastoid air cells and middle ear cavities are clear. CT Neck: The thyroid gland and remaining cervical soft tissues are within normal limits. Straightening of the normal cervical lordosis. Moderate degenerative disc disease from C3-C7. Moderate degenerative disc disease at all additional levels. Facet and uncovertebral joint arthropathy leads to osseous encroachment on the neural foramina from C3-C7. CT Upper Chest: The visualized lung apices and upper mediastinum are within normal limits. Neck CTA: Aortic Arch: Normal contour and caliber. Four vessel branching pattern with left vertebral artery arising directly from the arch between the left common carotid and left subclavian arteries. Great Vessel Origins: No significant stenosis of the branch origins. Right Common Carotid Artery: No focal stenosis or occlusion. Cervical Right Internal Carotid Artery: Calcific atherosclerotic disease of the carotid bulb and proximal internal carotid artery causing less than 50% stenosis. Left Common Carotid Artery: No focal stenosis or occlusion. Cervical Left Internal Carotid Artery: Mild calcific atherosclerotic disease of the carotid bulb and proximal internal carotid artery without flow-limiting stenosis. Cervical Right Vertebral Artery: Mildly prominent. No focal stenosis or occlusion. Cervical Left Vertebral Artery: No focal stenosis or occlusion. Brain CTA: Intracranial Internal Carotid Arteries: Calcific atherosclerotic disease of the intracranial internal carotid arteries without occlusion or flow-limiting stenosis. Right Anterior Cerebral Artery: Normal A1 segment. Normal opacification of the distal BA segments. Left Anterior Cerebral Artery: Normal A1 segment. Normal opacification of the distal BA segments. Anterior Communicating Artery: Normal. Right Middle Cerebral Artery: Normal M1 segment of the MCA without focal stenosis or occlusion. Normal arborization of the distal segments. Left Middle Cerebral Artery: Normal M1 segment of the MCA without focal stenosis or occlusion. Normal arborization of the distal segments. Right Vertebral Artery: Normal V4 segment. Normal opacification of the proximal segments of the posterior inferior cerebellar artery. Left Vertebral Artery: Normal V4 segment. The posterior inferior cerebellar artery is not well opacified; however, there is no CT evidence of acute occlusion. Basilar Artery: Normal without focal stenosis or occlusion. Normal appearance of the proximal superior cerebellar arteries. Right Posterior Cerebral Artery: Normal P1 segment. Normal opacification of the distal CABLE DRILLER segments. Left Posterior Cerebral Artery: Normal P1 segment. Normal opacification of the distal CABLE DRILLER segments. Normal opacification of the superior sagittal, straight, transverse, and sigmoid sinuses. CT/CT angio head neck IMPRESSION: 1. No evidence of acute intracranial hemorrhage or edematous territorial infarction. 2. CTA of the head and neck without proximal occlusion or flow-limiting stenosis. 3. Moderate multilevel degenerative spondyloarthropathy of the cervical spine. Electronically signed by: Rommel Perdomo DO 11/22/2023 04:06 PM EDT
--- NOTE | ~2023-11-22 | XR_ITS ---
EXAMINATION: XR CHEST CLINICAL INFORMATION: Syncopal episode COMPARISON: None available. TECHNIQUE: Frontal view of the chest was obtained. FINDINGS: No significant abnormality is noted involving the heart, lungs, mediastinum, bony thorax or soft tissues. XR/XR chest 1V IMPRESSION: Unremarkable examination. Electronically signed by: Jaylyn Bailey MD 11/22/2023 04:20 PM EDT
--- NOTE | ~2023-11-22 | US_ITS ---
EXAMINATION: RENAL ARTERY DOPPLER ULTRASOUND CLINICAL INFORMATION: Hypertension COMPARISON: US 11/22/2023 TECHNIQUE: Renal ultrasound. Doppler ultrasound (spectral analysis and color Doppler) of the renal arteries and aorta were performed. FINDINGS: The right kidney measures 11.2 cm x 6.8 cm x 6.0 cm in sagittal, AP and transverse dimensions. The left kidney measures 12.7 cm x 7.3 cm x 5.6 cm in sagittal, AP and transverse dimensions. The kidneys show no masses, calculi or hydronephrosis. The corticomedullary differentiation is normal. RENAL ARTERY VELOCITIES: Right: Proximally: 95 cm/s. Mid: 89 cm/s. Distal: 83 cm/s. Left: Proximally: 106 cm/s. Mid: 120 cm/s. Distally: 98 cm/s. The aortic velocity is 76 cm/s. The renal aortic ratio is 1.3 on the right and 1.3 on the left. These values are within normal limits. Renal veins are patent. US/US renal doppler IMPRESSION: 1. The kidneys are normal in appearance. 2. There is no evidence of renal artery stenosis. Electronically signed by: Robby Najera MD 12/15/2023 04:33 PM EDT
--- NOTE | ~2023-11-22 | US_ITS ---
EXAMINATION: RENAL ARTERY DOPPLER ULTRASOUND CLINICAL INFORMATION: Hypertension COMPARISON: US 11/22/2023 TECHNIQUE: Renal ultrasound. Doppler ultrasound (spectral analysis and color Doppler) of the renal arteries and aorta were performed. FINDINGS: The right kidney measures 11.2 cm x 6.8 cm x 6.0 cm in sagittal, AP and transverse dimensions. The left kidney measures 12.7 cm x 7.3 cm x 5.6 cm in sagittal, AP and transverse dimensions. The kidneys show no masses, calculi or hydronephrosis. The corticomedullary differentiation is normal. RENAL ARTERY VELOCITIES: Right: Proximally: 95 cm/s. Mid: 89 cm/s. Distal: 83 cm/s. Left: Proximally: 106 cm/s. Mid: 120 cm/s. Distally: 98 cm/s. The aortic velocity is 76 cm/s. The renal aortic ratio is 1.3 on the right and 1.3 on the left. These values are within normal limits. Renal veins are patent. US/US renal BI IMPRESSION: 1. The kidneys are normal in appearance. 2. There is no evidence of renal artery stenosis. Electronically signed by: Robby Najera MD 12/15/2023 04:33 PM EDT
--- NOTE | 2023-11-22 13:49 | ECG_ITS ---
Test Reason : SYNCOPE Blood Pressure : / mmHG Vent. Rate : 097 BPM Atrial Rate : 097 BPM P-R Int : 156 ms QRS Dur : 090 ms QT Int : 362 ms P-R-T Axes : 039 042 014 degrees QTc Int : 459 ms Normal sinus rhythm Normal ECG When compared with ECG of 29-DEC-2022 15:30, No significant change was found Referred By: Lauren Meza Electronically Signed By:SOURAV CONTRERAS
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
[2023-11-22 14:30] LABS: MANUAL DIFF FLAG NO
[2023-11-22 14:32] LABS: Basophils Percent Auto 0.2 % (0-2); Hematocrit 50.2 % (42.0-52.0); Hemoglobin 17.9 g/dl (14.0-18.0); Imm Gran Abs Auto 0.09 X10*3/uL (0.00-0.03); Imm Gran Pct Auto 0.5 % (0.0-0.4); Lymphocytes Absolute Auto 1.6 X10*3/uL (1.2-4.9); Lymphocytes Percent Auto 8.5 % (20-40); Mean Corpuscular HGB Conc 35.7 g/dl (31.0-36.0); Mean Corpuscular Hemoglobin 30.7 pg (27.0-33.0); Mean Platelet Volume 10.5 fL (9.4-12.4); Monocytes Absolute Auto 0.7 X10*3/uL (0.1-1.2); Monocytes Percent Auto 3.9 % (2-11); Neutrophils Absolute Auto 16.6 x10*3/uL (2.0-8.3); Neutrophils Percent Auto 86.9 % (45-73); Platelet Count 247 X10*3/uL (160-400); Red Blood Count 5.84 X10*6/uL (4.60-5.80); White Blood Count 19.1 X10*3/uL (4.8-10.8)
[2023-11-22 14:45] LABS: Alanine Aminotransferase 44 U/L (0-40); Albumin Level 4.3 g/dL (3.5-5.0); Alkaline Phosphatase 77 U/L (39-117); Anion Gap 15 (12-20); Aspartate Amino Transferase 29 U/L (5-37); Bilirubin Total 0.6 mg/dL (0.0-1.0); Blood Urea Nitrogen 12 mg/dL (9-16); Calcium 9.2 mg/dL (8.4-10.2); Carbon Dioxide 27 mmol/L (22-29); Chloride 102 mmol/L (96-108); Creatinine Clr Calc Pharmacy 72.6; Estimated Glomerular Filt Rate 53; Glucose Random 110 mg/dL (60-115); Magnesium 2.3 mg/dL (1.6-2.6); Potassium 3.5 mmol/L (3.3-5.1); Sodium 140 mmol/L (135-145); Total Protein 7.6 g/dL (6.5-8.0)
[2023-11-22 14:56] LABS: Troponin-I High Sensitivity < 2.7 ng/L (<3.5-35.0)
[2023-11-22] MEDS: iohexoL 350 MG/ML 100 ML INFUS..BTL IV (15:09)
[2023-11-22] MEDS: cefTRIAXone sodium 1 GM in 0.9 % Sodium Chloride 50 ML IV (15:43)
[2023-11-22] MEDS: 0.9 % Sodium Chloride 2,721.54 ML 2721.54 ML IV (15:45)
[2023-11-22] MEDS: amLODIPine Besylate 5 MG TABLET PO (15:45)
[2023-11-22 15:53] LABS: Lactic Acid 1.8 mmol/L (0.5-2.0)
[2023-11-22 15:56] LABS: Ethanol 12 mg/dL
--- NOTE | 2023-11-22 17:12 | PC.NURSE ---
Pt with small shopping bag of medications from home. All meds inventoried and brought to pharmacy. Form in chart.
--- NOTE | 2023-11-22 17:18 | PHA.MEDREC ---
Addendum entered by Gurmeet Steve RPh 11/22/23 17:24: CHECKED BY [facility] Original Note: Pharmacy Consult ? Medication Reconciliation Pharmacy has completed the medication reconciliation.
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
[2023-11-22 19:12] LABS: Appearance Urine Clear; Color Urine Yellow; Glucose Urine UA Negative (Negative); Leukocyte Esterase Urine Negative (Negative); Nitrite Urine Negative (Negative); PH 7.5 (5.0-9.0); Specific Gravity - Urine >= 1.030 (1.005-1.025); Urine Blood Negative (Negative); Urine Ketones Trace mg/dL (Negative); Urine Protein Negative (Neg-Trace)
[2023-11-22 19:23] LABS: Amphetamine Screen Urine Not Detected (Not Detect); Barbiturates, Urine Not Detected (Not Detect); Benzodiazepines Screen Urine Not Detected (Not Detect); Buprenorphine Scr Not Detected (Not Detect); Cannabinoid Screen Urine POSITIVE (Not Detect); Cocaine Screen Urine Not Detected (Not Detect); Fentanyl, urine Not Detected (Not Detect); Methadone Screen, Urine Not Detected (Not Detect); Opiate Screen Urine Not Detected (Not Detect); Oxycodone Screen Urine Not Detected (Not Detect); Phencyclidine Screen Urine Not Detected (Not Detect)
[2023-11-22] MEDS: Enoxaparin Sodium 40 MG/0.4 ML SYRINGE SUBCUT (19:31)
[2023-11-22] MEDS: hydrALAZINE HCl 50 MG TABLET PO (19:31)
[2023-11-22] MEDS: Divalproex Sodium ER 500 MG TAB.ER.24H 1000 MG PO (22:15)
[2023-11-22] MEDS: Gabapentin 300 MG CAPSULE PO (22:15)
[2023-11-22] MEDS: ARIPiprazole 20 MG TABLET PO (22:15)
[2023-11-23] MEDS: 0.9 % Sodium Chloride Flush 3 ML SYRINGE IVFLUSH ×2 (00:55→08:48)
[2023-11-23 03:21] VITALS: BP 175/98; PULSE 85; RESP 18; TEMP 37.4; O2SAT 98
[2023-11-23 06:08] VITALS: BMI 30.1
[2023-11-23 06:37] LABS: Hematocrit 50.6 % (42.0-52.0); Hemoglobin 17.6 g/dl (14.0-18.0); Mean Corpuscular HGB Conc 34.8 g/dl (31.0-36.0); Mean Corpuscular Hemoglobin 30.4 pg (27.0-33.0); Mean Corpuscular Volume 87.5 fL (80.0-98.0); Mean Platelet Volume 10.4 fL (9.4-12.4); Platelet Count 245 X10*3/uL (160-400); Red Blood Count 5.78 X10*6/uL (4.60-5.80); White Blood Count 11.4 X10*3/uL (4.8-10.8)
[2023-11-23 06:51] LABS: Anion Gap 11 (12-20); Blood Urea Nitrogen 9 mg/dL (9-16); Carbon Dioxide 25 mmol/L (22-29); Chloride 107 mmol/L (96-108); Estimated Glomerular Filt Rate > 60; Glucose Random 101 mg/dL (60-115); Potassium 3.2 mmol/L (3.3-5.1); Sodium 140 mmol/L (135-145)
[2023-11-23 08:00] VITALS: PULSE 90; RESP 20; TEMP 36.7; O2SAT 96
[2023-11-23] MEDS: Dextroamphetamine/Amphetamine XR 5 MG CAP.ER.24H 15 MG PO (08:46)
[2023-11-23] MEDS: hydrALAZINE HCl 50 MG TABLET PO (08:47)
[2023-11-23] MEDS: Potassium Chloride ER 20 MEQ TAB.ER.PRT 40 MEQ PO (08:47)
[2023-11-23] MEDS: cloNIDine HCL 0.1 MG TABLET PO (08:48)
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
[2023-11-23] MEDS: Gabapentin 300 MG CAPSULE PO (11:30)
[2023-11-23 11:58] VITALS: PULSE 88; RESP 20; TEMP 37.2; O2SAT 97
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
[2023-11-23 12:55] VITALS: BP 176/94
[2023-11-23] MEDS: amLODIPine Besylate 5 MG TABLET PO (13:47)
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
== END 2023-11-23 15:09 | disposition left against medical advice (07) | DRG 199 ==
LOC: HO.ED 16:13 → HO.EDOVER 19:02 → HO.IMC 19:33
PROVIDERS: Physician Assistant; Admitting Provider Student in an Organized Health Care Education/Training Program; Emergency Provider Emergency Medicine; PCP Nurse Practitioner Family; Visit Provider Student in an Organized Health Care Education/Training Program
DX: I16.0 Hypertensive urgency (principal); N17.9 Acute kidney failure, unspecified; F17.210 Nicotine dependence, cigarettes, uncomplicated; F43.10 Post-traumatic stress disorder, unspecified; R55 Syncope and collapse; Z71.6 Tobacco abuse counseling; I10 Essential (primary) hypertension; F90.9 Attention-deficit hyperactivity disorder, unspecified type; Z79.899 Other long term (current) drug therapy
CPT/HCPCS: 36415; 70496; 70498; 71045; 76775; 80048; 80053; 80307; 81003; 82550; 83605; 83735; 84443; 84484; 85025; 85027; 87040; 93005; 93975; 99222; 99285; J0696; J1650; Q9967

== ENCOUNTER → 2023-11-22 18:20 | Outpatient (BNV) | payer OTHER, SELFPAY | PROVIDERS: Admitting Provider Student in an Organized Health Care Education/Training Program; Emergency Provider Emergency Medicine; PCP Nurse Practitioner Family; Visit Provider Student in an Organized Health Care Education/Training Program | DX: N17.9 Acute kidney failure, unspecified (principal); M62.82 Rhabdomyolysis; R55 Syncope and collapse; I16.0 Hypertensive urgency | CPT/HCPCS: 99223; 99239; 99499 ==

== ENCOUNTER 2024-02-20 03:07 | Emergency (ER) | payer OTHER, SELFPAY ==
--- NOTE | ~2024-02-20 | XR_ITS ---
EXAMINATION: XR HAND/WRIST, RIGHT CLINICAL INFORMATION: blunt injury COMPARISON: None available. TECHNIQUE: PA, lateral, and oblique views of the right hand and wrist. FINDINGS: The bone mineralization is normal. The joint spaces are maintained. There is no evidence for acute fracture. There is lateral distal forearm soft tissue swelling XR/XR hand wrist RT IMPRESSION: Lateral distal forearm soft tissue swelling. No evidence for acute fracture. Electronically signed by: Tres Acharya MD 02/20/2024 04:15 AM [facility]
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
[2024-02-20 03:37] VITALS: BP 159/111; BP 182/94; PULSE 107; PULSE 119; RESP 18; TEMP 37.2; O2SAT 97; O2SAT 99; BMI 29.5
[2024-02-20 03:54] VITALS: BP 159/111; PULSE 107
[2024-02-20] MEDS: amLODIPine Besylate 10 MG TABLET PO (03:54)
[2024-02-20] MEDS: Labetalol HCL 100 MG TABLET PO (03:54)
[2024-02-20 05:02] LABS: Basophils Percent Auto 0.2 % (0-2); Eosinophils Percent Auto 0.1 % (0-4); Hematocrit 46.1 % (42.0-52.0); Hemoglobin 16.6 g/dl (14.0-18.0); Imm Gran Abs Auto 0.05 X10*3/uL (0.00-0.03); Imm Gran Pct Auto 0.3 % (0.0-0.4); Lymphocytes Absolute Auto 2.9 X10*3/uL (1.2-4.9); MANUAL DIFF FLAG NO; Mean Corpuscular Volume 86.2 fL (80.0-98.0); Neutrophils Absolute Auto 13.2 x10*3/uL (2.0-8.3); Neutrophils Percent Auto 76.4 % (45-73); Platelet Count 254 X10*3/uL (160-400); Red Blood Count 5.35 X10*6/uL (4.60-5.80); Red Cell Distribution Width 13.6 % (11.0-16.0); White Blood Count 17.3 X10*3/uL (4.8-10.8)
[2024-02-20 05:20] LABS: Valproate < 12.5 mcg/mL (50.0-100.0)
[2024-02-20 05:22] LABS: Acetaminophen LAB < 3 mcg/mL (<30); Albumin Level 4.2 g/dL (3.5-5.0); Anion Gap 15 (12-20); Aspartate Amino Transferase 54 U/L (5-37); Bilirubin Total 0.5 mg/dL (0.0-1.0); Blood Urea Nitrogen 8 mg/dL (9-16); Calcium 8.8 mg/dL (8.4-10.2); Carbon Dioxide 22 mmol/L (22-29); Chloride 106 mmol/L (96-108); Creatinine Clr Calc Pharmacy 94.6; Estimated Glomerular Filt Rate > 60; Ethanol < 10 mg/dL; Glucose Random 128 mg/dL (60-115); Potassium 3.4 mmol/L (3.3-5.1); Salicylate < 5.0 mg/dL (15-30); Sodium 140 mmol/L (135-145); Total Protein 7.1 g/dL (6.5-8.0)
[2024-02-20 05:31] LABS: Alanine Aminotransferase 39 U/L (0-40); Alkaline Phosphatase 69 U/L (39-117)
[2024-02-20 06:37] LABS: Amphetamine Screen Urine POSITIVE (Not Detect); Barbiturates, Urine Not Detected (Not Detect); Benzodiazepines Screen Urine Not Detected (Not Detect); Buprenorphine Scr Not Detected (Not Detect); Cannabinoid Screen Urine POSITIVE (Not Detect); Cocaine Screen Urine Not Detected (Not Detect); Fentanyl, urine Not Detected (Not Detect); Methadone Screen, Urine Not Detected (Not Detect); Opiate Screen Urine Not Detected (Not Detect); Oxycodone Screen Urine Not Detected (Not Detect); Phencyclidine Screen Urine Not Detected (Not Detect)
--- NOTE | 2024-02-20 11:03 | PC.NURSE ---
oob ambulating to common area. Patient offers no complaints
--- NOTE | 2024-02-20 13:18 | PC.NURSE ---
Report given to Tiffani on M3
--- NOTE | 2024-02-20 13:57 | MHC.CARE ---
Pt does not meet IPLOC at this time. He denies SI, HI, and A/V/H. Provider in agreement. Referral to [facility] for disposition.
[2024-02-20 14:48] VITALS: BP 165/89; PULSE 88; RESP 18; TEMP 36.8; O2SAT 98
--- NOTE | 2024-02-20 16:42 | MHC.CARE ---
CC Referral complete.
== END 2024-02-20 14:56 | disposition home or self-care (01) ==
PROVIDERS: Internal Medicine; Emergency Provider Emergency Medicine Emergency Medical Services; PCP Pediatrics
DX: R45.851 Suicidal ideations (principal); F32.A Depression, unspecified; M25.531 Pain in right wrist; I10 Essential (primary) hypertension; E78.5 Hyperlipidemia, unspecified; Z79.899 Other long term (current) drug therapy
CPT/HCPCS: 36415; 73110; 73130; 80053; 80143; 80164; 80179; 80307; 85025; 99284; S9485